=== PATIENT | male | born 1965 | race Caucasian/White ===

== ENCOUNTER 2017-03-06 09:44 | Inpatient (IN) | payer OTHER ==
[~2017-03-06] VITALS: Ht 180.3 cm; Wt 85.3 kg
--- NOTE | ~2017-03-06 | CON ---
[place], [place] REPORT OF CONSULTATION NAME: FRANK BELL UNIT #: [id number] ROOM: 511 DOCTOR: MILDRED ALFARO DMD BIRTHDATE: [birth year] DOS: This is a consultation for the patient admitted for ____ right facial swelling of 2 days' duration. The patient denies any dyspnea or dysphagia. Extraoral exam reveals moderate right-sided buccal space swelling. No submandibular or submental swelling or tenderness. Intraoral exam shows generalized poor oral condition, multiple nonrestorable teeth that are carious to the gum line. There is no sublingual swelling noted. Teeth #29 and 30 are carious to the gum line. There is a buccal space swelling extending from teeth #28 to 31. Discussed the treatment needed. The patient gave history of being extremely dental phobic. Recommend current IV antibiotic therapy and the patient to follow up with a private dentist once discharged. If the patient's condition does not improve by Wednesday, I will consider extractions and drainage under general anesthesia. The patient can call the office once discharged at [phone]. MILDRED ALFARO DMD CM:CONSTR:REPORT OF CONSULTATION [id number] 03/07/17 0154 interface
[~2017-03-06 09:44] MED LIST: PERCOCET 325 MG1 TA2 PO
[2017-03-06 09:49] VITALS: BP 122/90
[2017-03-06 10:11] LABS: BASO % 0.4 % (0.0-1.0); EOS # 0.3 10*3/uL (0.0-0.4); EOS % 2.7 % (1.0-4.0); HEMATOCRIT 40.2 % (42.0-52.0); LYMPH # 1.4 10*3/uL (1.3-4.4); LYMPH % 14.8 % (27.0-41.0); MEAN CELL VOLUME 81.2 fl (80.0-94.0); MEAN CORPUSCULAR HGB 28.3 pg (27.0-31.0); MEAN CORPUSCULAR HGB CONC 34.8 g/dl (33.0-37.0); MEAN PLATELET VOLUME 8.7 fl (9.6-12.3); MONO # 0.8 10*3/uL (0.1-1.0); MONO % 8.3 % (3.0-9.0); NEUT # 6.7 10*3/uL (2.3-7.9); NEUT % 73.4 % (47.0-73.0); PLATELET COUNT AUTOMATED 216 10*3/uL (130-400); RED BLOOD COUNT 4.95 10*6/uL (4.50-5.90); RED CELL DISTRI WIDTH 12.3 % (0-14.5); WHITE BLOOD COUNT 9.2 10*3/uL (4.8-10.8)
[2017-03-06 10:26] LABS: ALBUMIN 3.6 gm/dl (3.1-4.5); ALKALINE PHOSPHATASE 78 U/L (45-117); BUN 9 mg/dl (7-24); CHLORIDE 105 mmol/L (98-107); POTASSIUM 3.8 mmol/L (3.5-5.1); SGOT/AST 14 IU/L (3-35); SGPT/ALT 17 U/L (12-78); SODIUM 138 mmol/L (136-145); TOTAL PROTEIN 8.2 gm/dL (6.4-8.2)
--- NOTE | 2017-03-06 12:05 | NUR ---
PATIENT FLAGYL FINISHED. PATIENT RESTING IN BED AT THIS TIME.
[2017-03-06 13:00] VITALS: BP 130/81
--- NOTE | 2017-03-06 13:00 | NUR ---
Time: 1300 A 51 year old MALE admitted to 5E under services of ASIA THOMSON DO, Pt. arrived via bed from ER. Chief complaint: DENTAL ABSCESS. HEIDI BALTAZAR
--- NOTE | 2017-03-06 13:14 | NUR ---
LEFT MESSAGE WITH 'S CELL PHONE REGARDING CONSULT.
--- NOTE | 2017-03-06 15:15 | NUR ---
PATIENT MEDICATED WITH NORCO AT THIS TIME PER ORDER FOR COMPLAINTS OF PAIN IN RIGHT JAW. WILL MONITOR FOR EFFECTIVENESS.
[2017-03-06 16:00] VITALS: BP 132/78
--- NOTE | 2017-03-06 17:00 | NUR ---
in to see patient at this time.
--- NOTE | 2017-03-06 17:23 | NUR ---
PER PATIENT, RIGHT JAW PAIN HAS NOT BEEN RELIEVED WITH NORCO. PT STILL RATES PAIN A 6/10 AND WORSENING. MEDICATED WITH IV MORPHINE PER ORDER. WILL MONITOR.
--- NOTE | 2017-03-06 18:00 | NUR ---
per patient, morphine has been effective for jaw pain.
--- NOTE | 2017-03-06 19:50 | NUR ---
PT. IS CURRENTLY RESTING IN BED AT THIS TIME WATCHING TV. PT. HAS HOB ELEVATED AND CALL LIGHT WITHIN REACH. RIGHT SIDED FACIAL EDEMA NOTED, PT. REQUESTING PAIN MEDICATION, SEE EMAR FOR TX. BED IS LOW, WHEELS ARE LOCKED. SEE SHIFT ASSESSMENT.
[2017-03-06 20:00] VITALS: BP 148/83
--- NOTE | 2017-03-06 20:04 | NUR ---
PRN NORCO GIVEN FOR PT. C/O RIGHT JAW/TOOTH PAIN. CALL LIGHT IN REACH WILL MONITOR EFFECT.
--- NOTE | 2017-03-06 21:00 | NUR ---
MANDA GIFFORD EFFECTIVE PER PT. CALL LIGHT WITHIN REACH.
[2017-03-07] VITALS: BP 123/74
[2017-03-07 06:07] LABS: BASO % 0.3 % (0.0-1.0); EOS # 0.1 10*3/uL (0.0-0.4); EOS % 1.4 % (1.0-4.0); HEMATOCRIT 36.5 % (42.0-52.0); HEMOGLOBIN 12.6 g/dl (14.0-18.0); LYMPH # 1.3 10*3/uL (1.3-4.4); LYMPH % 14.5 % (27.0-41.0); MEAN CORPUSCULAR HGB 28.3 pg (27.0-31.0); MEAN CORPUSCULAR HGB CONC 34.5 g/dl (33.0-37.0); MEAN PLATELET VOLUME 9.2 fl (9.6-12.3); MONO # 0.9 10*3/uL (0.1-1.0); MONO % 9.6 % (3.0-9.0); NEUT # 6.6 10*3/uL (2.3-7.9); NEUT % 73.9 % (47.0-73.0); PLATELET COUNT AUTOMATED 200 10*3/uL (130-400); RED BLOOD COUNT 4.45 10*6/uL (4.50-5.90); RED CELL DISTRI WIDTH 12.3 % (0-14.5); WHITE BLOOD COUNT 8.9 10*3/uL (4.8-10.8)
[2017-03-07 06:17] LABS: ALBUMIN 3.1 gm/dl (3.1-4.5); ALKALINE PHOSPHATASE 71 U/L (45-117); BUN 10 mg/dl (7-24); CHLORIDE 102 mmol/L (98-107); CHOLESTEROL 139 mg/dL (<200); CREATININE 1.04 mg/dL (0.70-1.30); HDL CHOLESTEROL 47 mg/dl (40-60); LDL CHOLESTEROL 73 mg/dL (9-159); PHOSPHOROUS 3.1 mg/dL (2.5-4.9); POTASSIUM 3.7 mmol/L (3.5-5.1); SGOT/AST 13 IU/L (3-35); SGPT/ALT 17 U/L (12-78); SODIUM 137 mmol/L (136-145); TOTAL PROTEIN 7.4 gm/dL (6.4-8.2); TRIGLYCERIDES 95 mg/dl (<150); VLDL CHOLESTEROL 19 mg/dL (6-40)
--- NOTE | 2017-03-07 06:23 | NUR ---
PRN NORCO GIVEN FOR PT. C/0 RIGHT SIDED JAW/NECK PAIN. CALL LIGHT IN REACH WILL MONITOR.
[2017-03-07 07:06] LABS: VITAMIN D, 25-HYDROXY 17.3 ng/mL (30-100)
--- NOTE | 2017-03-07 07:30 | NUR ---
NORCO EFFECTIVE FOR PAIN PER PATIENT. ASSESSMENT COMPLETE. PT HAS SOME SWELLING NOTED RIGHT FACE/JAW AREA. PER PATIENT SLIGHTLY BETTER NOW THAN WHEN ADMITTED. NO NEEDS NOTED, WILL CONTINUE TO MONITOR FO RNEEDS
[2017-03-07 08:00] VITALS: BP 129/75
--- NOTE | 2017-03-07 10:23 | NUR ---
PT COMPLAINS OF PAIN RIGHT JAW/FACIAL PAIN 10/29. NORCO GIVEN.SEE MAY. WILL MONITOR FOR EFFECTIVENESS
--- NOTE | 2017-03-07 11:30 | NUR ---
NORCO EFFECTIVE FOR PAIN
[2017-03-07 12:00] VITALS: BP 128/73
--- NOTE | 2017-03-07 14:52 | NUR ---
pt complain of pain right face, 10/29. norco given. see mar. will monitor for effectiveness
[2017-03-07 16:00] VITALS: BP 115/75
--- NOTE | 2017-03-07 16:00 | NUR ---
NORCO EFFECTIVE FOR PAIN.
[2017-03-07 20:00] VITALS: BP 138/80
--- NOTE | 2017-03-07 21:35 | NUR ---
PT. REQUESTED PRN PAIN MEDICATION FOR RT. FACIAL PAIN 09/28. PRN PAIN MEDICATION ADM AT THIS TIME, WILL MONITOR FOR EFFECTIVENESS.
--- NOTE | 2017-03-07 22:00 | NUR ---
PT. STATED RELIEF OF PAIN AT THIS TIME. MEDICATION EFFECTIVE.
--- NOTE | 2017-03-07 23:02 | NUR ---
PT. AWAKE, ALERT AND ORIENTED X 3 AT THIS TIME. SLIGHT SWELLING TO RT. SIDE OF FACE FROM JAW TO EAR. DECREASED FROM YESTERDAY PER PT. IN BED AT THIS TIME, LUNGS CLEAR, DENIES SOB ON RA. PT. DENIES CP AT THIS TIME, HRR, PPP, NO EDEMA. BOWEL SOUNDS NORMO X 4 QUADS, DENIES NVD. PT. AMBULATORY, DENIES PAIN AT THIS TIME. CALL LIGHT WITHIN REACH, BED IN LOWEST POSITION, WHEELS LOCKED.
[2017-03-08] VITALS: BP 123/75
--- NOTE | 2017-03-08 02:00 | NUR ---
PT RESTING IN BED WITH EYES CLOSED. NO S AND S OF ACUTE DISTRESS NOTED AT THIS TIME. RESPS EASY AND REGULAR. CALL LIGHT IN REACH.
[2017-03-08 08:00] VITALS: BP 115/77
--- NOTE | 2017-03-08 09:00 | NUR ---
Gemologist in to talk to patient. Patient states lives at home with family. There are few steps in the home. Physician[facility] Patient's level of ADLs: INDEPENDENT Patient has working utilities: all working DME: none Follow-up physician's appointment after d/c: will be made by hospitalist tahira director upon discharge Does patient want to access PORTAL?: no Discharge plan discussed with patient, patient lives at home, states he will be going back when able and denies any home needs. CARMELA HARDY
--- NOTE | 2017-03-08 10:05 | NUR ---
PATIENT REQUESTED NORCO FOR RIGHT JAW PAIN. PAIN 7/10 ON SCALE OF 1/10. PATIENT STATES THAT HE IS GETTING IT BEFORE HE EATS HIS BREAKFAST.
--- NOTE | 2017-03-08 11:06 | NUR ---
PAIN MEDICATION EFFECTIVE PER PATIENT, PAIN 3/10.
[2017-03-08 12:00] VITALS: BP 109/68
[2017-03-08 16:00] VITALS: BP 129/83
[2017-03-08 20:00] VITALS: BP 147/90
[2017-03-09] VITALS: BP 100/51
--- NOTE | 2017-03-09 07:34 | NUR ---
Shift chart check completed.
[2017-03-09 08:00] VITALS: BP 104/68
--- NOTE | 2017-03-09 09:00 | NUR ---
case management visits with patient, patient denies any home needs
[2017-03-09 12:00] VITALS: BP 110/72
[2017-03-09] MEDS ORDERED: VITAMIN D5000 UNI1 PO (13:20)
[2017-03-09] MEDS ORDERED: CLINDAMYCIN HC300 MG PO (13:20)
--- NOTE | 2017-03-09 14:20 | NUR ---
WENT OVER D/C INSTRUCTIONS WITH PATIENT. REMOVED IV WITH CATHETER INTACT. PATIENT VERBALIZED UNDERSTANDING THAT SCRIPTS WERE SENT TO PHARMACY. PATIENT AMBULATED TO EXIT WITHOUT DIFFICULTY. PATIENT IS D/C HOME.
== END 2017-03-09 14:20 | disposition home or self-care (01) | DRG 158 ==
LOC: ED 09:44 → 5E 12:06 → EDHOLD 12:06 → 5E 12:26
PROVIDERS: Nurse Practitioner Family; ADMIT Internal Medicine
DX: K02.9 Dental caries, unspecified (principal); L03.211 Cellulitis of face; E44.1 Mild protein-calorie malnutrition; R73.9 Hyperglycemia, unspecified; Z88.0 Allergy status to penicillin; Z82.49 Family history of ischemic heart disease and other diseases of the circulatory system; Z80.0 Family history of malignant neoplasm of digestive organs; Z91.018 Allergy to other foods; Z68.26 Body mass index [BMI] 26.0-26.9, adult

== ENCOUNTER → 2017-06-09 | Day surgery (SDC) | payer OTHER ==
[~2017-06-09] VITALS: Ht 180.3 cm; Wt 81.6 kg
[~2017-06-09] MED LIST changes: +CLINDAMYCIN HC300 MG PO; +VITAMIN D5000 UNI1 PO
--- NOTE | ~2017-06-09 | O ---
[place], [place] OPERATIVE NOTE NAME: FRANK BELL UNIT #: [id number] ROOM: DOCTOR: RADHA BRADY MD BIRTHDATE: [birth year] DOS: 06/09/2017 GASTROENDOSCOPIC REPORT The patient has presented to Emergency Room with inability to swallow and drink, this has occurred since yesterday after he had a chicken meal. He has been brought to the operating room for the management of the esophageal foreign body. PAST MEDICAL HISTORY: Unremarkable with a few other episodes of foreign body esophagus. ALLERGIES: PENICILLIN. SOCIAL HISTORY: Nonsmoker, rare alcohol consumer. FAMILY HISTORY: Noncontributory. PROCEDURE: Today's procedure part of investigation is panendoscopy plus foreign body removal from esophagus. PREMEDICATION: Versed and Diprivan. SCOPE: Olympus forward-viewing gastroscope Q10 video. REPORT: After putting the patient in left lateral position and application of lubricant to the scope, the scope was introduced. Thereafter, under direct visualization, advanced through the length of esophagus without difficulty. As I approached distal esophagus, there is solid food impaction of distal esophagus secondary to presence of a piece of chicken meat. Basket retrieval system was used and portion of the foreign body was orally extracted and a segment of it was pushed into the gastric pouch. Distal Gastric pouch was entered, duodenal patency assured. Photographic series obtained. The patient extubated, tolerated procedure well. IMPRESSION: Esophageal foreign body, status post foreign body extraction with a [employer] basket. PLAN AND DISCUSSION: This gentleman requires future esophageal dilation as outpatient to prevent recurrent esophageal foreign body. Thank you very much indeed. DIET: Soft activity ad jean. At the present time. [place], [place] OPERATIVE NOTE NAME: FRANK BELL Ankit UNIT #: [id number] ROOM: DOCTOR: RADHA BRADY MD BIRTHDATE: [birth year] RADHA BRADY MD CM:OPRECORD:OPERATIVE NOTE 58 09 RADHA BRADY MD 06/09/172010 interface
[2017-06-09 15:06] LABS: BASO % 0.7 % (0.0-1.0); EOS # 0.3 10*3/uL (0.0-0.4); EOS % 5.2 % (1.0-4.0); HEMATOCRIT 42.8 % (42.0-52.0); HEMOGLOBIN 14.3 g/dl (14.0-18.0); LYMPH # 1.8 10*3/uL (1.3-4.4); LYMPH % 30.5 % (27.0-41.0); MEAN CELL VOLUME 84.3 fl (80.0-94.0); MEAN CORPUSCULAR HGB 28.1 pg (27.0-31.0); MEAN CORPUSCULAR HGB CONC 33.4 g/dl (33.0-37.0); MEAN PLATELET VOLUME 9.3 fl (9.6-12.3); MONO # 0.4 10*3/uL (0.1-1.0); MONO % 7.1 % (3.0-9.0); NEUT # 3.2 10*3/uL (2.3-7.9); NEUT % 56.3 % (47.0-73.0); PLATELET COUNT AUTOMATED 202 10*3/uL (130-400); RED BLOOD COUNT 5.08 10*6/uL (4.50-5.90); RED CELL DISTRI WIDTH 13.3 % (0-14.5); WHITE BLOOD COUNT 5.7 10*3/uL (4.8-10.8)
[2017-06-09 15:23] LABS: ALBUMIN 3.9 gm/dl (3.1-4.5); ALKALINE PHOSPHATASE 62 U/L (45-117); BUN 12 mg/dl (7-24); CHLORIDE 104 mmol/L (98-107); CREATININE 1.22 mg/dL (0.70-1.30); LIPASE 146 U/L (73-393); POTASSIUM 3.9 mmol/L (3.5-5.1); SGOT/AST 26 IU/L (3-35); SGPT/ALT 29 U/L (12-78); SODIUM 139 mmol/L (136-145)
[2017-06-09 19:55] VITALS: BP 123/78
[2017-06-09 20:10] VITALS: BP 126/84
[2017-06-09 20:25] VITALS: BP 133/88
== END | disposition home or self-care (01) ==
LOC: ED 14:20 → EDSTATUS 17:51 → SDC 17:52
PROVIDERS: Physician Assistant
DX: T18.128A Food in esophagus causing other injury, initial encounter (principal); Z98.890 Other specified postprocedural states; Z88.0 Allergy status to penicillin; X58.XXXA Exposure to other specified factors, initial encounter; Y93.89 Activity, other specified; Y92.89 Other specified places as the place of occurrence of the external cause; Y99.8 Other external cause status

== ENCOUNTER 2020-03-24 14:26 | Emergency (ER) | payer OTHER ==
[~2020-03-24] VITALS: Wt 77.1 kg
[2020-03-24 14:31] VITALS: BP 124/71
[2020-03-24 15:24] LABS: BASO % 0.5 % (0.0-1.0); EOS # 0.1 10*3/uL (0.0-0.4); EOS % 1.3 % (1.0-4.0); HEMATOCRIT 41.1 % (42.0-52.0); LYMPH % 18.7 % (27.0-41.0); MEAN CELL VOLUME 83.5 fl (80.0-94.0); MEAN CORPUSCULAR HGB 27.6 pg (27.0-31.0); MEAN CORPUSCULAR HGB CONC 33.1 g/dl (33.0-37.0); MEAN PLATELET VOLUME 8.8 fl (9.6-12.3); MONO # 0.4 10*3/uL (0.1-1.0); MONO % 7.1 % (3.0-9.0); PLATELET COUNT AUTOMATED 219 10*3/uL (130-400); RED BLOOD COUNT 4.92 10*6/uL (4.50-5.90); RED CELL DISTRI WIDTH 13.2 % (0-14.5); WHITE BLOOD COUNT 5.5 10*3/uL (4.8-10.8)
[2020-03-24 15:35] LABS: ACT PARTIAL THROMBO TIME 23.1 SECONDS (20.0-32.1); INTERNATIONAL NORM RATIO 0.9 (2.0-3.5)
[2020-03-24 15:39] LABS: ALBUMIN 3.4 gm/dl (3.1-4.5); ALKALINE PHOSPHATASE 61 U/L (45-117); BUN 8 mg/dl (7-24); CHLORIDE 107 mmol/L (98-107); CREATININE 1.12 mg/dL (0.70-1.30); POTASSIUM 3.7 mmol/L (3.5-5.1); SGOT/AST 17 IU/L (3-35); SGPT/ALT 19 U/L (12-78); SODIUM 142 mmol/L (136-145); TOTAL PROTEIN 7.4 gm/dL (6.4-8.2)
== END 2020-03-24 18:11 | disposition home or self-care (01) ==
LOC: ED 14:26
PROVIDERS: Nurse Practitioner Family
DX: M54.2 Cervicalgia (principal); R51.9 Headache, unspecified; M25.562 Pain in left knee; R42 Dizziness and giddiness; Z88.0 Allergy status to penicillin; Z90.89 Acquired absence of other organs; Z96.22 Myringotomy tube(s) status; V89.2XXA Person injured in unspecified motor-vehicle accident, traffic, initial encounter; Y93.89 Activity, other specified; Y92.488 Other paved roadways as the place of occurrence of the external cause; Y99.8 Other external cause status

== ENCOUNTER 2021-10-28 02:42 | Emergency (ER) | payer OTHER ==
[~2021-10-28] VITALS: Ht 177.8 cm; Wt 77.1 kg
[2021-10-28 02:58] VITALS: BP 162/90
[2021-10-28 03:26] LABS: URINE AMPHETAMINES < 1000 (1000ng/ml); URINE BARBITURATES < 200 (200ng/ml); URINE BENZODIAZEPINES < 200 (200ng/ml); URINE CANNABINOIDS (THC) < 50 (50ng/ml); URINE COCAINE < 300 (300ng/ml); URINE METHADONE < 300 (300ng/ml); URINE OPIATES < 300 (300ng/ml)
[2021-10-28 03:40] LABS: URINE PHENCYCLIDINE < 25 (25ng/ml)
== END 2021-10-28 03:52 | disposition home or self-care (01) ==
LOC: ED 02:42
PROVIDERS: Internal Medicine
DX: R00.2 Palpitations (principal); F41.9 Anxiety disorder, unspecified; Z90.89 Acquired absence of other organs; Z88.0 Allergy status to penicillin